=== PATIENT | female | born 1960 | race Caucasian/White ===

== ENCOUNTER → 2023-06-12 | Outpatient (CLI) | payer OTHER ==
--- NOTE | 2023-06-12 12:40 | XR ---
EXAMINATION TYPE: XR foot complete RT DATE OF EXAM: 06/12/2023 COMPARISON: NONE HISTORY: Pain TECHNIQUE: Three views are submitted. FINDINGS: There is a deformity of the distal phalanx first digit suspicious for fracture. Moderate hypertrophic arthropathy first MTP. Mild diffuse osteopenia and tiny plantar calcaneal spurs. IMPRESSION: 1. Mildly displaced fracture distal phalanx first digit.
== END | disposition home or self-care (01) ==
LOC: RADXRMAIN 11:43
PROVIDERS: ATTEND Emergency Medicine
DX: S62.521A Displaced fracture of distal phalanx of right thumb, initial encounter for closed fracture (principal); S97.111A Crushing injury of right great toe, initial encounter

== ENCOUNTER → 2023-06-21 | Outpatient (CLI) | payer OTHER ==
[2023-06-21 15:07] LABS: Basophils # (A) 0.06 X 10*3/uL (0.00-0.10); Eosinophils % (A) 1.7 %; HCT 36.7 % (37.2-46.3); HGB 12.1 g/dL (12.0-15.0); Lymphocytes # (A) 2.17 X 10*3/uL (0.90-5.00); MCH 27.6 pg (27.0-32.0); MCV 83.6 FL (80.0-97.0); Mean Platelet Volume 11.1 FL (9.5-12.2); Monocytes # (A) 0.51 X 10*3/uL (0.20-1.00); Monocytes % (A) 8.5 %; NRBC Per 100 WBC 0 X 10*3/uL (0.00-0.01); Neutrophils # (A) 3.18 X 10*3/uL (1.80-7.70); Neutrophils % (A) 52.6 %; Platelet Count 254 X 10*3/uL (140-440); RBC 4.39 X 10*6/uL (4.10-5.20); RDW 12.9 % (11.5-14.5); WBC 6.03 X 10*3/uL (4.50-10.00)
[2023-06-21 15:18] LABS: ALT 20 U/L (8-44); AST 18 U/L (13-35); Albumin 4.3 g/dL (3.8-4.9); Albumin/Globulin Ratio 1.48 Ratio (1.60-3.17); Alkaline Phosphatase 75 U/L (41-126); BUN/Creat Ratio 24.46 Ratio (12.00-20.00); Blood Urea Nitrogen 31.8 mg/dL (9.0-27.0); C Reactive Protein <0.30 mg/dL (0.00-0.80); Carbon Dioxide 24.4 mmol/L (21.6-31.8); Chloride 100 mmol/L (96-109); Globulin 2.9 g/dL (1.6-3.3); Glucose 107 mg/dL (70-110); Potassium 4.3 mmol/L (3.5-5.5); Sodium 139 mmol/L (135-145); Total Bilirubin 0.6 mg/dL (0.3-1.2); Total Protein 7.2 g/dL (6.2-8.2)
[2023-06-21 15:29] LABS: Erythrocyte Sedimentation Rate 22 mm/Hr (0-30)
[2023-06-21 15:45] LABS: Prealbumin 32.8 mg/dL (18.0-42.0)
== END | disposition home or self-care (01) ==
LOC: LABWHC1 10:12
PROVIDERS: ATTEND Family Medicine
DX: I10 Essential (primary) hypertension (principal); E11.59 Type 2 diabetes mellitus with other circulatory complications; E11.621 Type 2 diabetes mellitus with foot ulcer; S92.422A Displaced fracture of distal phalanx of left great toe, initial encounter for closed fracture; S91.102A Unspecified open wound of left great toe without damage to nail, initial encounter; X58.XXXA Exposure to other specified factors, initial encounter
CPT/HCPCS: 36415; 80053; 84134; 85025; 85652; 86140

== ENCOUNTER → 2023-06-26 | Outpatient (CLI) | payer OTHER ==
--- NOTE | 2023-06-26 12:00 | US ---
EXAMINATION TYPE: US arterial LE single level DATE OF EXAM: 06/26/2023 11:09 AM CLINICAL INDICATION: Female, 63 years old with history of E11.621 TYPE 2 DIABETES MELLITUS WITH FOOT ULCER; broke right big toe 06/12, slow healing resulting wound and blister that popped 1 week ago History of: Smoker: N Hypertension: Y Diabetic: TYPE 2 Hyperlipidemia: Y TIA/CVA: N Previous Vascular Surgery: N CAD: N CT: N Vascular Ulcers: N Claudication: N Gangrene: N Doppler Waveforms: Right: Multiphasic Left: Multiphasic Right Brachial Pressure: 107 Left Brachial Pressure: 114 Ankle-Brachial Indices: Right: 1.04 Left: 1.07 Toe Brachial Indices: Right: DEFERRED DUE TO PATIENT PAIN AND BANDAGES Left: 0.89 IMPRESSION: 1. No suspicious focal stenosis based on ratios. There is some biphasic waveform present suggesting u pstream arterial narrowing.
== END | disposition home or self-care (01) ==
LOC: RADUSWWP 10:17
PROVIDERS: ATTEND Family Medicine
DX: E11.621 Type 2 diabetes mellitus with foot ulcer (principal); I10 Essential (primary) hypertension; E78.5 Hyperlipidemia, unspecified; S91.102A Unspecified open wound of left great toe without damage to nail, initial encounter; X58.XXXA Exposure to other specified factors, initial encounter
CPT/HCPCS: 93922

== ENCOUNTER → 2023-06-29 | Outpatient (CLI) | payer OTHER ==
--- NOTE | 2023-06-29 14:49 | XR ---
EXAMINATION TYPE: XR foot complete RT DATE OF EXAM: 06/29/2023 CLINICAL HISTORY: S97.111A,S92.404D. Great toe fracture TECHNIQUE: Frontal, lateral, and oblique images of the right foot are obtained. COMPARISON: Right foot x-ray June 12, 2023 FINDINGS: There is no new acute fracture/dislocation evident in the right foot. Slight cortical erin p-off and lucency in the first distal phalanx redemonstrated. The joint spaces in the right foot appe ar within normal limits. The overlying soft tissue appears unremarkable. IMPRESSION: As above. No significant change from prior. Possible minimally displaced subacute fractur e distal first toe redemonstrated.
== END | disposition home or self-care (01) ==
LOC: RADXRMAIN 14:20
PROVIDERS: ATTEND Emergency Medicine
DX: S92.404D Nondisplaced unspecified fracture of right great toe, subsequent encounter for fracture with routine healing (principal); S97.111A Crushing injury of right great toe, initial encounter

== ENCOUNTER → 2023-08-16 | Outpatient (CLI) | payer OTHER ==
--- NOTE | 2023-08-16 14:58 | CT ---
EXAMINATION TYPE: CT abdomen pelvis wo con DATE OF EXAM: 08/16/2023 COMPARISON: None INDICATION: hydronephrosis DLP: 916 mGycm, Automated exposure control for dose reduction was used. CONTRAST: 0 mL of Isovue 300. Study performed without Oral Contrast TECHNIQUE: Axial images were obtained from above the diaphragm to the pubic rami in the axial plane a t 5 mm thick sections. Reconstructed images are reviewed on the computer in the coronal plane. FINDINGS: Limited CT sections are obtained the lung bases. The lung bases are clear. There is a moderately la rge size hiatal hernia. CT ABDOMEN: Liver: Normal Spleen: Normal Pancreas: Normal Adrenal glands: The adrenal glands are normal. Gallbladder: Normal Kidneys: No masses are evident. No renal stones are evident. There are appear to be small peripelvic cysts present bilaterally. No hydroureter is evident. No etiology for obstruction and hydronephrosis. Aorta: Normal Inferior vena cava: Normal. CT PELVIS: Loops of bowel within the abdomen and pelvis are normal. The study is without oral contrast limit ing bowel evaluation. Appendix: Normal as visualized. Urinary bladder: Normal. Genitourinary structures: Osseous structures: No suspicious lytic or sclerotic lesions. IMPRESSION: 1. Findings appear more suggestive for peripelvic cysts present bilaterally. Significant hydronephro sis is not appreciated. 2. Moderately large hiatal hernia.
== END | disposition home or self-care (01) ==
LOC: RADCTMAIN 09:14
PROVIDERS: ATTEND Urology
DX: K44.9 Diaphragmatic hernia without obstruction or gangrene (principal); N13.30 Unspecified hydronephrosis
CPT/HCPCS: 74176